=== PATIENT | female | born 1985 | race Asian ===

== ENCOUNTER 2018-01-28 07:48 | Inpatient (IN) | payer BC ==
[2018-01-28] MEDS ORDERED: Oxytocin in LR* 20 UNITS/1,000 ML BAG IVPB SCH ×2 (09:00→19:00)
[2018-01-28 10:43] LABS: ABS Basophils 0 10^3/ul (0-0.2); ABS Eosinophils 0 10^3/ul (0-0.6); ABS Lymphocytes 1.4 10^3/ul (1.0-4.8); ABS Monocytes 0.4 10^3/ul (0-0.8); ABS Neutrophils 5.2 10^3/ul (1.5-7.7); ABS Nucleated RBC 0 10^3/ul; Eosinophil % 0.7 % (0-6); Hematocrit 33 % (35-47); Hemoglobin 10.9 g/dl (12.0-16.0); Lymphocyte % 20.2 % (25-47); Mean Corpuscular HGB Conc 33 g/dl (31-36); Mean Corpuscular Hemoglobin 26 pg (27-31); Mean Corpuscular Volume 78 fL (80-97); Mean Platelet Volume 7.5 um3 (7.4-10.4); Nucleated Red Blood Cells % 0.1; Platelet Count 260 10^3/ul (150-450); Red Blood Count 4.25 10^6/ul (4.00-5.40); Red Cell Distribution Width 16 % (10.5-15); White Blood Count 7.1 10^3/ul (3.5-10.8)
--- NOTE | 2018-01-28 11:30 | HP ---
General Information - General Information Maternal Age: 32 Grav: 2 Para: 1 SAB: 0 IEA: 0 Estimated Due Date: 02/04/18 Determined By: LMP Maternal Blood Type and Rh: O Positive - Results this Serology/RPR Result: Non-Reactive Rubella Result: Immune HBsAg Result: Negative HIV Result: Negative GBS Culture Result: Negative Past Medical History Delivery History: Hx Complicated Vaginal Delivery - previous shoulder dystocia/ Pertinent Past Medical History: Non-Contributory Pertinent Past Surgical History: None Pertinent Family History: Non-Contributory - Antepartal Records Antepartal Records: Reviewed, Complicated by: - glucose intolerance / did not meet criteria for gestational diabetes Review of Systems Constitutional: Comfortable Genitourinary: No Bleeding, No Leaking Fluid Musculoskeletal: No Complaint Movement: Normal Exam Allergies/Adverse Reactions: Allergies MS Nitrofurantoin [From Macrobid] Allergy (Verified 01/28/18 08:15) Fever rash MS Shellfish Allergy [Shellfish Allergy] Allergy (Verified 11/26/15 06:12) Hives Lab Values - Entire Visit: Laboratory Tests 01/28/18 01/28/18 10:10 10:10 WBC 7.1 RBC 4.25 Hgb 10.9 L Hct 33 L MCV 78 L MCH 26 L MCHC 33 RDW 16 H Plt Count 260 MPV 7.5 Neut % (Auto) 72.6 Lymph % (Auto) 20.2 L [place] % (Auto) 5.9 Eos % (Auto) 0.7 Baso % (Auto) 0.6 Absolute Neuts (auto) 5.2 Absolute Lymphs (auto) 1.4 Absolute Monos (auto) 0.4 Absolute Eos (auto) 0 Absolute Basos (auto) 0 Absolute Nucleated RBC 0 Nucleated RBC % 0.1 Blood Type O Positive Antibody Screen Negative - Measurements Height: 5 ft 4 in Weight: 153 lb Weight in lbs: 153.234407 Body Mass Index (BMI): 26.2 Pre- Weight: 136 lb Weight Gained This : 17 lbs and 0 ozs - Exam Breast: Breast Exam Deferred Extremities: No Edema Heart: Normal Rhythm/Heart Sounds HEENT: No Significant Findings Lungs: Clear Bilaterally Targeted Exam Findings See L&D Outpatient Visit Provider Note for Findings: N/A Cervical Exam: 4cm Effacement: 80% Station: -2 Presenting Part: Vertex Membrane Status: AROM Amniotic Fluid Evaluation: Clear EFM Findings - External Monitor Findings Baseline Heart Rate: 135 External Monitor Findings: Accelerations Present, Variability Moderate Contractions: Mild Assessment/Plan - Assessment 39 weeks wuith glucose intolerance and previous difficult delivery and mild shoulder dystocia - Obstetrical Risk Factors Obstetrical Risk Factors: Gestational Diabetes Risk Factors Comment: estimated weight 8lbs 5 ozs. - Plan Plan: Induction - Date/Time of Admission Date of Admission: 01/28/18 Time of Admission: 11:00
[2018-01-28] MEDS ORDERED: OBEPIDURAL* 250 ML EPIDURAL ONE (12:57)
[2018-01-28] MEDS ORDERED: Sodium Citrate/Citric Acid* 15 ML UDC PO PRN (13:36)
[2018-01-28] MEDS ORDERED: Phenylephrine IV* 40 MCG/ML 10 ML SYRINGE IV PUSH PRN ×2 (13:36)
[2018-01-28] MEDS ORDERED: Acetaminophen TAB* 325 MG PO PRN ×2 (13:39→18:19)
[2018-01-28] MEDS ORDERED: Acetaminophen TAB* 325 MG ONE (13:41)
[2018-01-28] MEDS ORDERED: OBEPIDURAL* 250 ML EPIDURAL SCH (14:00)
[2018-01-28] MEDS ORDERED: Dibucaine 1% 28.35 GM TUBE PR PRN (18:19)
[2018-01-28] MEDS ORDERED: Glycerin ADULT SUPP PR PRN (18:19)
[2018-01-28] MEDS ORDERED: Witch Hazel PAD* JAR TOPICAL PRN (18:19)
[2018-01-28] MEDS ORDERED: Misoprostol TAB* 200 MCG ONE (18:24)
--- NOTE | 2018-01-28 18:29 | PROCNOTE ---
[facility]: Delivery Note - Nursery Level of Nursery: Regular/Bedside - pushed well x 60 minutes some variable decelerations just after pushing - Perineum Perineal Injury: 1st Degree Perineal Repair: By Delivering Practioner - Events Delivery Events of Note: Pitocin During Labor - cytotec prophylactically Delivery Events of Note Comment: history of hemorrhage so pitocin and cytotec preventative given. ebl 300 cc
[2018-01-28] MEDS: Ibuprofen TAB* 600 MG PO PRN (19:32)
[2018-01-28] MEDS ORDERED: Ondansetron ODT TAB* 4 MG ONE (19:48)
[2018-01-28] MEDS ORDERED: Ondansetron INJ* 2 MG/ML VIAL ONE (19:49)
[2018-01-28] MEDS ORDERED: Ondansetron INJ* 2 MG/ML VIAL IV ONE (19:52)
[2018-01-28] MEDS ORDERED: Simethicone TAB* 80 MG TAB.CHEW PO SCH (21:00)
[2018-01-28] MEDS: Docusate CAP* 100 MG PO SCH (21:54)
[2018-01-29 07:00] LABS: ABS Basophils 0 10^3/ul (0-0.2); ABS Eosinophils 0.1 10^3/ul (0-0.6); ABS Neutrophils 9.9 10^3/ul (1.5-7.7); ABS Nucleated RBC 0 10^3/ul; Eosinophil % 0.4 % (0-6); Hematocrit 29 % (35-47); Hemoglobin 9.2 g/dl (12.0-16.0); Lymphocyte % 15.2 % (25-47); Mean Corpuscular HGB Conc 32 g/dl (31-36); Mean Corpuscular Hemoglobin 25 pg (27-31); Mean Corpuscular Volume 78 fL (80-97); Mean Platelet Volume 7.5 um3 (7.4-10.4); Nucleated Red Blood Cells % 0; Platelet Count 233 10^3/ul (150-450); Red Blood Count 3.65 10^6/ul (4.00-5.40); Red Cell Distribution Width 16 % (10.5-15); White Blood Count 12.9 10^3/ul (3.5-10.8)
[2018-01-29] MEDS: Ibuprofen TAB* 600 MG PO PRN ×2 (08:02→15:10)
[2018-01-29] MEDS: Docusate CAP* 100 MG PO SCH ×2 (08:02→15:12)
[2018-01-29] MEDS ORDERED: Ferrous Gluconate TAB* 324 MG TAB PO SCH (09:00)
[2018-01-29 15:44] VITALS: BP 97/54
== END 2018-01-29 19:00 | disposition home or self-care (01) | DRG 560 ==
LOC: MCHOBOUT 07:48 → MCHOB 08:47
PROVIDERS: ADMIT Obstetrics & Gynecology; ATTEND Obstetrics & Gynecology
PROC: 10E0XZZ Delivery of Products of Conception, External Approach (ICD-10-PCS; principal; 2018-01-28)
PROC: 4A1HX4Z Monitoring of Products of Conception, Cardiac Electrical Activity, External Approach (ICD-10-PCS; 2018-01-28)
PROC: 0HQ9XZZ Repair Perineum Skin, External Approach (ICD-10-PCS; 2018-01-28)
PROC: 3E033VJ Introduction of Other Hormone into Peripheral Vein, Percutaneous Approach (ICD-10-PCS; 2018-01-28)
PROC: 10907ZC Drainage of Amniotic Fluid, Therapeutic from Products of Conception, Via Natural or Artificial Opening (ICD-10-PCS; 2018-01-28)
DX: O75.89 Other specified complications of labor and delivery (principal); E74.39 Other disorders of intestinal carbohydrate absorption; Z88.8 Allergy status to other drugs, medicaments and biological substances; Z91.013 Allergy to seafood; Z3A.39 39 weeks gestation of pregnancy; Z37.0 Single live birth; O70.0 First degree perineal laceration during delivery; O90.81 Anemia of the puerperium; O76 Abnormality in fetal heart rate and rhythm complicating labor and delivery
CPT/HCPCS: 36415; 85025; 86850; 86900; 86901; A9270-GY; J2405

== ENCOUNTER 2024-08-18 16:33 | Inpatient (IN) ==
[2024-08-18] MEDS ORDERED: HYDROmorphone 0.5 MG/0.5 ML SYRINGE ONE (16:38)
[2024-08-18] MEDS: HYDROmorphone 0.5 MG/0.5 ML SYRINGE IV ONE (16:52)
[2024-08-18] MEDS ORDERED: Ondansetron 4 mg VIAL 2 MG/ML 2 ml VIAL ONE (16:54)
[2024-08-18] MEDS: Ondansetron 4 mg VIAL 2 MG/ML 2 ml VIAL IV ONE (16:59)
[2024-08-18 17:31] LABS: ABS Basophils 0.1 10^3/uL (0.0-0.1); ABS Lymphocytes 1.7 10^3/uL (1.0-4.8); ABS Monocytes 0.8 10^3/uL (0.0-0.9); ABS Neutrophils 16.9 10^3/uL (1.5-7.6); Eosinophil % 0.2 %; Hematocrit 39.4 % (35-45); Hemoglobin 13.4 g/dL (11.5-14.3); Lymphocyte % 8.6 %; Mean Corpuscular Hemoglobin 30.5 pg (27-33); Mean Corpuscular Volume 89.6 fL (80-97); Mean Platelet Volume 7.5 fL (7.5-11.2); Platelet Count 318 10^3/uL (150-450); Red Blood Count 4.39 10^6/uL (3.63-4.92); Red Cell Distribution Width 13.8 % (12-17); White Blood Count 19.5 10^3/uL (3.8-11.8)
[2024-08-18] MEDS ORDERED: Lactulose 30 ml UDC PO PRN (18:12)
[2024-08-18] MEDS ORDERED: Magnesium Hydroxide LIQ 30 ML UDC PO PRN (18:12)
[2024-08-18] MEDS ORDERED: Ondansetron ODT 4 mg TAB 4 MG TAB PO PRN (18:12)
[2024-08-18] MEDS ORDERED: Calcium Carb (TUMS) 500 mg CHEW TAB PO PRN (18:12)
[2024-08-18 18:18] LABS: ALT 16 U/L (7-52); AST 18 U/L (13-39); Albumin 4.3 g/dL (3.5-5.7); Albumin/Globulin Ratio 1.6 (1-3); Alkaline Phosphatase 33 U/L (35-149); Anion Gap 8 mmol/L (2-16); Blood Urea Nitrogen 17 mg/dL (6-24); CO2 Carbon Dioxide 24 mmol/L (22-32); Calcium 8.4 mg/dL (8.6-10.3); Chloride 104 mmol/L (101-111); Creatinine, Serum 0.68 mg/dL (0.51-0.95); Globulin 2.7 g/dL (2-4); Glucose 115 mg/dL (70-100); Potassium 3.3 mmol/L (3.5-5.0); Sodium 136 mmol/L (135-145); Total Bilirubin 0.3 mg/dL (0.2-1.0); eGFR CKD-EPI 113.5 (>60)
[2024-08-18 18:25] LABS: HCG Pregnancy < 0.60 mIU/mL
[2024-08-18] MEDS: Morphine 2 MG/ML SYRINGE IV PRN (19:34)
[2024-08-18] MEDS: Enoxaparin 40 MG/0.4 ML SYR SUBCUT ONE (19:35)
[2024-08-18] MEDS: Lidocaine 1% VIAL 10 MG/ML 30 ML VIAL INJ ONE (19:36)
[2024-08-18] MEDS: Magnesium Hydroxide LIQ 30 ML UDC PO SCH (21:15)
[2024-08-18] MEDS: Ondansetron 4 mg VIAL 2 MG/ML 2 ml VIAL IV PRN (21:25)
[2024-08-18 21:44] LABS: INR 1.2 (0.85-1.14)
[2024-08-18] MEDS: HYDROmorphone 1 MG/1 ML SYRINGE IV SLOW PU ONE (21:51)
[2024-08-18] MEDS ORDERED: HYDROmorphone 1 MG/1 ML SYRINGE ONE (22:02)
[2024-08-18 22:20] LABS: Magnesium 1.9 mg/dL (1.9-2.7)
[2024-08-18] MEDS: Prochlorperazine 5 mg/ml 2 ml VIAL (10 mg) IV PRN (23:30)
[2024-08-19] MEDS: Acetaminophen IV 1 GM/100ML 1,000 MG/100 ML BAG IV ONE (00:39)
[2024-08-19] MEDS: Vitamin THERAPEUTIC TAB PO SCH (08:09)
[2024-08-19] MEDS ORDERED: ceFAZolin 2 GM PREMIX 2 GM/50 ML BAG ONE (09:46)
[2024-08-19] MEDS ORDERED: fentaNYL 100 mcg/2 ml 50 MCG/ML VIAL IV PRN (09:48)
[2024-08-19] MEDS ORDERED: Naloxone 0.4 mg VIAL 0.4 mg/ml 1 ml VIAL IV PRN (09:48)
[2024-08-19] MEDS ORDERED: Acetaminophen IV 1 GM/100ML 1,000 MG/100 ML BAG IV ONE (09:48)
[2024-08-19] MEDS ORDERED: Buffered Lidocaine 1% SYRIN 1 ml INTRADERM ONE (09:48)
[2024-08-19] MEDS ORDERED: Ondansetron 4 mg VIAL 2 MG/ML 2 ml VIAL IV PRN (09:48)
[2024-08-19] MEDS ORDERED: Midazolam 2 mg/2 ml VIAL 1 mg/ml 2 ml VIAL (2 mg) ONE ×2 (09:50→10:31)
[2024-08-19] MEDS ORDERED: ROPIVACAINE 5 MG/ML 30 ML BTL (0.5%) ONE (09:50)
[2024-08-19] MEDS ORDERED: fentaNYL 100 mcg/2 ml 50 MCG/ML VIAL ONE ×3 (09:50→12:24)
[2024-08-19] MEDS ORDERED: Dexamethasone IV 4 MG/ML VIAL 1 ml VIAL ONE ×2 (09:50→10:31)
[2024-08-19] MEDS ORDERED: NS 0.45% 1000 ml BAG 1,000 ML IV SCH (10:00)
[2024-08-19] MEDS ORDERED: Lactated Ringers 1000 ml BAG 1,000 ML IV SCH (10:00)
[2024-08-19] MEDS ORDERED: Ondansetron 4 mg VIAL 2 MG/ML 2 ml VIAL ONE (10:31)
[2024-08-19] MEDS ORDERED: Lidocaine 2% PF 5 ML VIAL ONE (10:31)
[2024-08-19] MEDS ORDERED: Propofol 10 MG/ML 20 ML BTL ONE (10:31)
[2024-08-19] MEDS ORDERED: Phenylephrine 40 mcg/mL 10mL (400mcg) SYRINGE ONE (10:31)
[2024-08-19] MEDS ORDERED: Rocuronium 50 mg VIAL 10 mg/ml 5 ml VIAL (50 mg) ONE ×2 (10:31→12:20)
[2024-08-19] MEDS ORDERED: Scopolamine 1 mg/72hr PATCH ONE (10:45)
[2024-08-19] MEDS: Scopolamine 1 mg/72hr PATCH TRANSDERM ONE (10:47)
[2024-08-19] MEDS ORDERED: Phenylephrine IV 10 MG/ML 1 ml VIAL ONE (11:24)
[2024-08-19] MEDS ORDERED: Vancomycin 1,000 MG VIAL ONE (13:20)
[2024-08-19] MEDS ORDERED: Prochlorperazine 5 mg/ml 2 ml VIAL (10 mg) ONE (15:33)
[2024-08-19 16:17] VITALS: BP 115/72
== END 2024-08-19 16:07 | disposition home or self-care (01) | DRG 315 ==
LOC: ED 16:33 → EDHOLD 18:12 → SSU 22:56
PROVIDERS: ADMIT Orthopaedic Surgery Hand Surgery; ATTEND Orthopaedic Surgery Hand Surgery